=== PATIENT | female | born 1960 | race Caucasian/White ===

== ENCOUNTER 2016-11-18 13:30 | Inpatient (IN) | payer OTHER ==
[2016-11-18 12:31] VITALS: BMI 36.6
[2016-11-24] MEDS ORDERED: Sodium Chloride 0.9% 100 ML ONE ×2 (07:29→11:52)
[2016-11-24] MEDS ORDERED: ADMIXTURE FEE IVPB SCH (07:45)
[2016-11-24] MEDS ORDERED: SODIUM CHLORIDE IVPB SCH (07:45)
[2016-11-24] MEDS ORDERED: VANCOMYCIN HCL IVPB SCH (07:45)
[2016-11-24] MEDS ORDERED: Ropivacaine 0.2% HCl/PF 20 ML ONE (08:08)
[2016-11-24] MEDS ORDERED: Fentanyl 100 MCG/2 ML VIAL ONE ×2 (08:08→09:27)
[2016-11-24] MEDS ORDERED: Midazolam HCl 2 mg/2 ml Vial ONE (08:08)
[2016-11-24] MEDS ORDERED: Promethazine HCl 25 MG/ML VIAL IM PRN ×2 (08:26→11:29)
[2016-11-24] MEDS ORDERED: traMADol HCl 50 MG TAB PO PRN ×3 (08:26→11:29)
[2016-11-24] MEDS ORDERED: Ondansetron HCl/PF 4 MG/2 ML Vial IVP PRN ×2 (08:26→11:29)
[2016-11-24] MEDS ORDERED: Zolpidem Tartrate 5 MG TAB PO PRN ×2 (08:26→11:29)
[2016-11-24] MEDS ORDERED: Ropivacaine HCl/PF 250 ML in Premix Bag 1 BAG NERVE BLCK SCH (08:26)
[2016-11-24] MEDS ORDERED: HYDROcodone/Acetaminophen 10/325 mg Tablet PO PRN (08:26)
[2016-11-24] MEDS ORDERED: Fentanyl 100 MCG/2 ML VIAL IV PRN (08:26)
[2016-11-24] MEDS ORDERED: Bupivacaine PF 0.5% 30 ML VIAL ONE (09:18)
[2016-11-24] MEDS ORDERED: Bupivacaine HCl 0.5%/Epinephrine 1:200,000/PF 30 ml Vial ONE (09:18)
[2016-11-24] MEDS ORDERED: ePHEDrine/0.9% NaCl/PF SYRINGE 50 mg/10 ml ONE (09:50)
[2016-11-24] MEDS ORDERED: Propofol 200 MG/20 ML VIAL ONE (09:50)
[2016-11-24] MEDS ORDERED: Lidocaine 1% PF 5 ML VIAL ONE (09:50)
[2016-11-24] MEDS ORDERED: Ketorolac Tromethamine 30 MG/ML VIAL ONE (09:50)
[2016-11-24] MEDS ORDERED: PHENYLEPHRINE-NS 100 MCG/ML 10 ML SYRINGE ONE (09:50)
[2016-11-24] MEDS ORDERED: Ondansetron HCl/PF 4 MG/2 ML Vial ONE (09:50)
[2016-11-24] MEDS ORDERED: Dexamethasone 20 MG/5 ML VIAL ONE (09:50)
[2016-11-24] MEDS ORDERED: Glycopyrrolate 0.2 MG/ML 5 ML SYRINGE ONE (09:50)
[2016-11-24] MEDS ORDERED: Acetaminophen 325 MG TAB PO PRN (11:29)
[2016-11-24] MEDS ORDERED: diphenhydrAMINE HCl 25 MG CAP PO PRN (11:29)
[2016-11-24] MEDS ORDERED: Tranexamic Acid 1,000 MG in Sodium Chloride 0.9% 100 ML IVPB SCH (11:30)
--- NOTE | 2016-11-24 11:45 | OP ---
DATE OF PROCEDURE: 11/24/2016 PREOPERATIVE DIAGNOSIS: Left knee osteoarthrosis. POSTOPERATIVE DIAGNOSIS: Left knee osteoarthrosis. PROCEDURE PERFORMED: Left total knee replacement using [employer] pinless navigation. SURGEON: Bear Irvin M.D. GLASS CLEANER: Daryn Peoples PA-C. BLOOD LOSS: Minimal. COMPLICATIONS: None. ANESTHETIC: The patient did have a general anesthetic as well as a preoperative block. IMPLANTS: To the left knee, Triathlon total knee system. The femoral prosthesis was a size 4 cruci ate retaining. We used a size 3 universal tibial baseplate. We used a 3 x 11 mm CS X3 tibial beari ng and an asymmetric 29 x 9 X3 patella. DISPOSITION: She did go to recovery room in stable condition. INDICATIONS: A 56-year-old female who has had years of pain. She has failed all nonoperative treat ment and at this time opted to have surgery. PROCEDURE IN DETAIL: After all appropriate consent forms were explained and signed, the patient was taken back to the Operating Room and at this time was given general anesthetic. Once the level of an esthesia was appropriate, a well-padded tourniquet was placed on the left leg and the leg was then p repped and draped in standard surgical fashion. The limb was exsanguinated and tourniquet taken up t o 300 mmHg. Midline incision was made with a 10 blade down through the skin and subcutaneous tissue. Bovie electrocautery was used to coagulate any brisk venous bleeding. A new blade was used to make a medial parapatellar arthrotomy. Small subperiosteal release was performed medially and excess fat pad was removed. The knee was flexed up to gain access to the femur. The femur was navigated and dis marguerite femoral resection was made. Epicondylar access was used to align our sizing jig and this was pin amada in place. We sized our femur to be a size 4 cruciate retraining. :1 cutting block was applied a nd pinned. Anterior and posterior chamfer cuts were then made. We navigated out our proximal tibia a nd made our proximal tibial resection. Spreaders were used to remove any posterior osteophytes off t he back of the femur as well as remaining meniscal tissue. A long alignment krystal was then used to ach ieve correct rotation of our tibial baseplate and a size 3 universal tibial baseplate was chosen. Th is was pinned in place. We trialed the polyethylene and a 3 x 11 mm CS X3 tibial bearing polyethylen e gave us full extension and good stability throughout range of motion. Two towel clips and a saw we re used to cut our patella. Three lug nuts were drilled and an asymmetric 29 x 9 X3 patella was tria led which sat nicely in the trochlear groove. We then drilled our femur and punched our tibia. All c omponents were removed. The knee was thoroughly irrigated and dried. Cement was mixed into the cemen t gun on the back table. Components were then placed. The knee was held out in full extension until the cement had dried. All excess bone cement was removed. Multiple #2 Vicryl stitches as well as a Quill was used to close our extensor mechanism. 0 Quill followed by a running Monoderm was then used to close the skin. Surgicel glue was then used on the skin. Once this had dried, soft tissue dressi ng was applied to the limb, tourniquet was let down, and the toes pinked up nicely. The patient was then awakened and taken to the Recovery Room in stable condition. All counts were correct at the en d of the case. The patient did receive preoperative IV antibiotics. The patient was injected with E xparel for postoperative pain relief.
[2016-11-24] MEDS ORDERED: Promethazine HCl 25 MG/ML VIAL ONE (12:28)
[2016-11-24] MEDS: Ketorolac Tromethamine 30 MG/ML VIAL IVP SCH ×2 (14:54→17:04)
--- NOTE | 2016-11-24 16:09 | PDOC.PN ---
- Subjective Encounter Start Date: 11/24/16 Encounter Start Time: 16:07 Pt seen for management of medical comorbidities, including dyslipidemia. Sleepy but arousable, denies chest pain, shortness of breath, fevers or chills. No nausea or vomiting. - Objective MAR Reviewed: Yes Vital Signs & Weight: Weight Weight 200 lb Phys Exam - Physical Examination Obese HEENT: moist MMs, sclera anicteric Neck: supple Respiratory: no wheezing, no rales, no rhonchi, clear to auscultation bilateral Cardiovascular: RRR Gastrointestinal: soft Musculoskeletal: pulses present s/p L knee surgery Neurological: moves all 4 limbs Psychiatric: normal affect Dx/Plan (1) Dyslipidemia Code(s): E78.5 - HYPERLIPIDEMIA, UNSPECIFIED Status: Chronic (2) Osteoarthritis Code(s): M19.90 - UNSPECIFIED OSTEOARTHRITIS, UNSPECIFIED SITE Status: Chronic (3) Obesity Code(s): E66.9 - OBESITY, UNSPECIFIED Status: Chronic Qualifiers: Obesity classification: adult class 2 (BMI 35 ? 39.9) Body mass index: BMI 36.0-36.9 - Plan * . continue Zetia. Monitor vital signs. PRN IV hydralazine in case she has blood pressure spikes. DVT prophylaxis and pain management per orthopedic service. Review of Systems - Review of Systems Constitutional: negative: Fever, Chills, Sweats, Weakness, Malaise Respiratory: negative: Cough, Dry, Shortness of Breath, Hemoptysis, SOB with Excertion, Pleuritic Pain, Sputum, Wheezing Cardiovascular: negative: Chest Pain, Palpitations, Orthopnea, Paroxysmal Noc. Dyspnea, Edema, Light Headedness, Other Gastrointestinal: negative: Nausea, Vomiting, Abdominal Pain, Diarrhea, Constipation, Melena, Hematochezia - Medications/Allergies Allergies/Adverse Reactions: Allergies Allergy/AdvReac Type Severity Reaction Status Date / Time No Known Drug Allergies Allergy Verified 11/21/16 09:18 Medications: Current Medications Acetaminophen (Tylenol) 650 mg PO Q4H PRN PRN Reason: UJNE/ T > 101F; Mild Pain (1-3) Hydrocodone Bitart/Acetaminophen ([place] 10/325) 1 tab PO Q4H PRN PRN Reason: Pain (1-3) Hydrocodone Bitart/Acetaminophen ([place] 10/325) 2 tab PO Q4H PRN PRN Reason: PAIN (4-6) Aspirin (Aspirin) 325 mg PO BID [facility] Cefazolin Sodium (Ancef) 2 gm SLOW IVP Q8H [facility] Stop: 11/25/16 00:01 Diphenhydramine HCl (Benadryl) 25 mg PO Q6H PRN PRN Reason: Itching Ezetimibe (Zetia) 10 mg PO DAILY [facility] Fentanyl (Sublimaze) 50 mcg IV Q1H PRN PRN Reason: BREAKTHROUGH PAIN Ferrous Gluconate (Fergon) 324 mg PO BID [facility] Ropivacaine 250 ml/ Device 250 mls @ 0 mls/hr NERVE BLCK INF [facility] PRN Reason: As Directed Sodium Chloride (Normal Saline 0.9%) 1,000 mls @ 100 mls/hr IV .Q10H [facility] Vancomycin HCl 1.5 gm/ Sodium (Chloride) 300 mls @ 200 mls/hr IVPB 1999 [facility] Stop: 11/24/16 23:59 Iron/Minerals/Multivitamins (Theragran M) 1 tab PO DAILY [facility] Ketorolac Tromethamine (Toradol) 30 mg IVP Q6HR [facility] Stop: 11/26/16 06:01 Last Admin: 11/24/16 14:54 Dose: Not Given Ondansetron HCl (Zofran) 4 mg IVP Q6H PRN PRN Reason: Nausea/Vomiting Promethazine HCl (Phenergan) 12.5 mg IM Q4H PRN PRN Reason: Nausea/Vomiting Senna/Docusate Sodium (Senokot S) 2 tab PO BID [facility] Sodium Chloride (Flush - Normal Saline) 10 ml IVF PRN PRN PRN Reason: Saline Flush Tramadol HCl (Ultram) 100 mg PO Q6H PRN PRN Reason: Mild Pain (1-3) Zolpidem Tartrate (Ambien) 5 mg PO HSPRN PRN PRN Reason: Insomnia
[2016-11-24] MEDS: Sodium Chloride 0.9% 1,000 ML IV SCH ×2 (17:03→21:59)
[2016-11-24] MEDS ORDERED: Vancomycin HCl 1.5 GM in Sodium Chloride 0.9% 250 ML 300 ML IVPB SCH (20:00)
[2016-11-24] MEDS: Senokot S 8.6-50 MG TAB PO SCH (20:41)
[2016-11-24] MEDS: Aspirin 325 MG TAB PO SCH (20:41)
[2016-11-24] MEDS: Ferrous Gluconate 324 MG TAB PO SCH (20:41)
[2016-11-25] MEDS: Ketorolac Tromethamine 30 MG/ML VIAL IVP SCH ×5 (00:12→23:39)
[2016-11-25] MEDS: HYDROcodone/Acetaminophen 10/325 mg Tablet PO PRN ×4 (06:09→20:42)
[2016-11-25] MEDS: Sodium Chloride 0.9% 1,000 ML IV SCH ×2 (06:14→07:59)
[2016-11-25 06:17] LABS: Hematocrit 32.8 % (36.0-47.0); Mean Platelet Volume 7.2 fL (7.4-10.4); Red Blood Cell (RBC) Count 3.87 mill/uL (4.20-5.40); White Blood Cell (WBC) Count 10.3 thou/uL (4.8-10.8)
[2016-11-25] MEDS: Ferrous Gluconate 324 MG TAB PO SCH ×2 (07:56→20:41)
[2016-11-25] MEDS: Ezetimibe 10 MG TAB PO SCH (07:56)
[2016-11-25] MEDS: Senokot S 8.6-50 MG TAB PO SCH ×2 (07:56→20:41)
[2016-11-25] MEDS: Multivitamin W/ Minerals 1 TAB PO SCH (07:56)
[2016-11-25] MEDS: Aspirin 325 MG TAB PO SCH ×2 (07:56→20:41)
--- NOTE | 2016-11-25 17:02 | PDOC.PN ---
- Subjective Encounter Start Date: 11/25/16 Encounter Start Time: 09:40 Pt seen for followup re: dyslipidemia. Reports she feels well. Denies chest pain, nausea, vomiting or diarrhea. - Objective MAR Reviewed: Yes Vital Signs & Weight: Vital Signs (12 hours) Temp Pulse Resp BP Pulse Ox 11/25/16 16:00 97.8 F 66 18 132/66 94 L 11/25/16 12:00 97.9 F 71 18 134/69 93 L 11/25/16 08:25 97.9 F 77 20 11/25/16 08:00 97.9 F 77 20 99/62 94 L Weight Admit Weight 200 lb Weight 200 lb I&O: 11/24/16 11/25/16 11/26/16 06:59 06:59 06:59 Intake Total 3482 1200 Output Total 1100 900 Balance 2382 300 Result Diagrams: 11/25/16 05:32 Phys Exam - Physical Examination Obese HEENT: moist MMs Neck: supple Respiratory: clear to auscultation bilateral Cardiovascular: RRR Gastrointestinal: soft s/p L knee surgery Neurological: moves all 4 limbs Psychiatric: normal affect Dx/Plan (1) Dyslipidemia Code(s): E78.5 - HYPERLIPIDEMIA, UNSPECIFIED Status: Chronic (2) Osteoarthritis Code(s): M19.90 - UNSPECIFIED OSTEOARTHRITIS, UNSPECIFIED SITE Status: Chronic (3) Obesity Code(s): E66.9 - OBESITY, UNSPECIFIED Status: Chronic Qualifiers: Obesity classification: adult class 2 (BMI 35 ? 39.9) Body mass index: BMI 36.0-36.9 - Plan PT/OT, out of bed/ambulate * . Continue ezetimibe. Monitor vital signs per unit protocol. DVT prophylaxis/pain mgmt per primary service. Review of Systems - Review of Systems Constitutional: negative: Fever, Chills, Sweats, Weakness, Malaise Respiratory: negative: Cough, Dry, Shortness of Breath, Hemoptysis, SOB with Excertion, Pleuritic Pain, Sputum, Wheezing Cardiovascular: negative: Chest Pain, Palpitations, Orthopnea, Paroxysmal Noc. Dyspnea, Edema, Light Headedness - Medications/Allergies Allergies/Adverse Reactions: Allergies Allergy/AdvReac Type Severity Reaction Status Date / Time No Known Drug Allergies Allergy Verified 11/24/16 16:51 Medications: Current Medications Acetaminophen (Tylenol) 650 mg PO Q4H PRN PRN Reason: JUNE/ T > 101F; Mild Pain (1-3) Hydrocodone Bitart/Acetaminophen ([place] 10/325) 1 tab PO Q4H PRN PRN Reason: Pain (1-3) Hydrocodone Bitart/Acetaminophen ([place] 10/325) 2 tab PO Q4H PRN PRN Reason: PAIN (4-6) Last Admin: 11/25/16 16:16 Dose: 2 tab Aspirin (Aspirin) 325 mg PO BID [facility] Last Admin: 11/25/16 07:56 Dose: 325 mg Diphenhydramine HCl (Benadryl) 25 mg PO Q6H PRN PRN Reason: Itching Ezetimibe (Zetia) 10 mg PO DAILY [facility] Last Admin: 11/25/16 07:56 Dose: 10 mg Fentanyl (Sublimaze) 50 mcg IV Q1H PRN PRN Reason: BREAKTHROUGH PAIN Ferrous Gluconate (Fergon) 324 mg PO BID [facility] Last Admin: 11/25/16 07:56 Dose: 324 mg Hydralazine HCl (Apresoline) 10 mg SLOW IVP Q6H PRN PRN Reason: SBP Greater Than 170 Ropivacaine 250 ml/ Device 250 mls @ 0 mls/hr NERVE BLCK INF [facility] PRN Reason: As Directed Last Admin: 11/25/16 11:37 Dose: 250 mls Sodium Chloride (Normal Saline 0.9%) 1,000 mls @ 100 mls/hr IV .Q10H [facility] Last Admin: 11/25/16 07:59 Dose: Not Given Iron/Minerals/Multivitamins (Theragran M) 1 tab PO DAILY [facility] Last Admin: 11/25/16 07:56 Dose: 1 tab Ketorolac Tromethamine (Toradol) 30 mg IVP Q6HR [facility] Stop: 11/26/16 06:01 Last Admin: 11/25/16 11:46 Dose: 30 mg Ondansetron HCl (Zofran) 4 mg IVP Q6H PRN PRN Reason: Nausea/Vomiting Promethazine HCl (Phenergan) 12.5 mg IM Q4H PRN PRN Reason: Nausea/Vomiting Senna/Docusate Sodium (Senokot S) 2 tab PO BID [facility] Last Admin: 11/25/16 07:56 Dose: 2 tab Sodium Chloride (Flush - Normal Saline) 10 ml IVF PRN PRN PRN Reason: Saline Flush Tramadol HCl (Ultram) 100 mg PO Q6H PRN PRN Reason: Mild Pain (1-3) Zolpidem Tartrate (Ambien) 5 mg PO HSPRN PRN PRN Reason: Insomnia
[2016-11-26] MEDS: Sodium Chloride 0.9% 1,000 ML IV SCH ×2 (03:46→10:22)
[2016-11-26] MEDS: HYDROcodone/Acetaminophen 10/325 mg Tablet PO PRN ×3 (04:47→13:14)
[2016-11-26] MEDS: Ketorolac Tromethamine 30 MG/ML VIAL IVP SCH (05:27)
[2016-11-26 08:12] LABS: Hematocrit 33.4 % (36.0-47.0); Red Blood Cell (RBC) Count 3.89 mill/uL (4.20-5.40)
[2016-11-26] MEDS: Aspirin 325 MG TAB PO SCH (08:39)
[2016-11-26] MEDS: Ezetimibe 10 MG TAB PO SCH (08:40)
[2016-11-26] MEDS: Multivitamin W/ Minerals 1 TAB PO SCH (08:40)
[2016-11-26] MEDS: Ferrous Gluconate 324 MG TAB PO SCH (08:40)
[2016-11-26] MEDS: Senokot S 8.6-50 MG TAB PO SCH (08:40)
[2016-11-26 11:54] VITALS: BP 136/73; TEMP 97.2
--- NOTE | 2016-11-26 14:11 | PDOC.EVN ---
Event Note - Event Note Event Note: Attempted to follow up . Pt not in room. Plan to discharge noted, will sign off.
== END 2016-11-26 16:35 | disposition home health service (06) | DRG 470 ==
LOC: SURG B 11-24 06:43 → SJJU 11-24 11:48
PROVIDERS: ADMIT Orthopaedic Surgery; ATTEND Orthopaedic Surgery
PROC: 0SRD0J9 Replacement of Left Knee Joint with Synthetic Substitute, Cemented, Open Approach (ICD-10-PCS; principal; 2016-11-24)
PROC: 3E0T3CZ (ICD-10-PCS; 2016-11-24)
DX: M17.12 Unilateral primary osteoarthritis, left knee (principal); E11.42 Type 2 diabetes mellitus with diabetic polyneuropathy; Z79.84 Long term (current) use of oral hypoglycemic drugs; F41.9 Anxiety disorder, unspecified; F32.9 Major depressive disorder, single episode, unspecified; M79.7 Fibromyalgia; E66.01 Morbid (severe) obesity due to excess calories; Z68.36 Body mass index [BMI] 36.0-36.9, adult; E78.5 Hyperlipidemia, unspecified; G47.33 Obstructive sleep apnea (adult) (pediatric); Z98.84 Bariatric surgery status; Z87.891 Personal history of nicotine dependence
CPT/HCPCS: 36415; 85027; C1713; C1776; G8978-GP-CK; G8979-GP-CI; J0670; J1100; J1885; J2001; J2250; J2405; J2550; J2704; J2795; J3010; J3370; J7050; S0020

== ENCOUNTER 2017-02-03 08:45 | Inpatient (IN) | payer OTHER ==
[2017-02-03 09:02] VITALS: BMI 35.3
[2017-02-09] MEDS ORDERED: Midazolam HCl 2 mg/2 ml Vial ONE ×2 (07:28→09:38)
[2017-02-09] MEDS ORDERED: Ropivacaine 0.2% HCl/PF 20 ML ONE (07:28)
[2017-02-09] MEDS ORDERED: Fentanyl 100 MCG/2 ML VIAL ONE ×3 (07:28→12:44)
[2017-02-09] MEDS ORDERED: Vancomycin HCl 1.5 GM in Sodium Chloride 0.9% 250 ML 300 ML IVPB SCH ×2 (07:30→20:00)
[2017-02-09] MEDS ORDERED: Tranexamic Acid 1,000 MG/100 ML BAG ONE ×2 (07:32→12:37)
[2017-02-09] MEDS ORDERED: CEFAZOLIN/Water 2 GM/20 ML SYRINGE ONE (07:32)
[2017-02-09] MEDS ORDERED: Promethazine HCl 25 MG/ML VIAL IM PRN ×3 (08:21→11:18)
[2017-02-09] MEDS ORDERED: traMADol HCl 50 MG TAB PO PRN ×2 (08:21→10:54)
[2017-02-09] MEDS ORDERED: Zolpidem Tartrate 5 MG TAB PO PRN ×2 (08:21→10:54)
[2017-02-09] MEDS ORDERED: HYDROcodone/Acetaminophen 5/325 mg Tablet PO PRN (08:21)
[2017-02-09] MEDS ORDERED: Ropivacaine HCl/PF 250 ML in Premix Bag 1 BAG NERVE BLCK SCH (08:21)
[2017-02-09] MEDS ORDERED: Fentanyl 100 MCG/2 ML VIAL IV PRN (08:24)
[2017-02-09] MEDS ORDERED: Bupivacaine PF 0.5% 30 ML VIAL ONE (09:28)
[2017-02-09] MEDS ORDERED: Fentanyl 250 MCG/5 ML VIAL ONE (10:51)
[2017-02-09] MEDS ORDERED: Acetaminophen 325 MG TAB PO PRN (10:54)
[2017-02-09] MEDS ORDERED: diphenhydrAMINE 25 MG CAP PO PRN (10:54)
[2017-02-09] MEDS ORDERED: HYDROcodone/Acetaminophen 10/325 mg Tablet PO PRN ×2 (10:54)
[2017-02-09] MEDS ORDERED: Ondansetron HCl/PF 4 MG/2 ML Vial IVP PRN ×2 (10:54→11:18)
[2017-02-09] MEDS ORDERED: Tranexamic Acid 1,000 MG in Sodium Chloride 0.9% 100 ML IVPB SCH (11:00)
[2017-02-09] MEDS ORDERED: Promethazine HCl 25 MG/ML VIAL SLOW IVP PRN (11:18)
--- NOTE | 2017-02-09 12:34 | OP ---
DESCRIPTION OF PROCEDURE: 02/09/2017 PREOPERATIVE DIAGNOSIS: Right knee osteoarthrosis. POSTOPERATIVE DIAGNOSIS: Right knee osteoarthrosis. PROCEDURE PERFORMED: Right total knee arthroplasty using [employer] pinless navigation. SURGEON: Bear Irvin M.D. QM CONSULTANT: Daryn Peoples PA-C. BLOOD LOSS: Minimal. COMPLICATIONS: None. IMPLANTS: A Triathlon total knee system. The femur was a size 4 cruciate retaining. We used a size 3 universal tibial baseplate. We used a 3 x 9 mm CSX3 tibial bearing and an symmetric 27 x 8 mm X3 patella. CONDITION: She did go to recovery room in stable condition. INDICATIONS: A 56-year-old female who had her left knee replaced earlier this year and at this time wished to have her right knee replaced. PROCEDURE IN DETAIL: After all appropriate consent forms were explained and signed, the patient was t aken back to the Operating Room and at this time was given general anesthetic. Once the level of anes thesia was appropriate, a well-padded tourniquet was placed on the right leg and the leg was then pre pped and draped in standard surgical fashion. The limb was exsanguinated and tourniquet taken up to 3 00 mmHg. Midline incision was made with a 10 blade down through the skin and subcutaneous tissue. Bov ie electrocautery was used to coagulate any brisk venous bleeding. A new blade was used to make a med ial parapatellar arthrotomy. Small subperiosteal release was performed medially and excess fat pad wa s removed. The knee was flexed up to gain access to the femur. The femur was navigated and distal fem oral resection was made. Epicondylar access was used to align our sizing jig and this was pinned in p lace. We sized our femur to be a cruciate retaining, 4:1 cutting block was applied and pinned. Anteri or and posterior chamfer cuts were then made. We navigated out our proximal tibia and made our proxim al tibial resection. Spreaders were used to remove any posterior osteophytes off the back of the femu r as well as remaining meniscal tissue. A long alignment krystal was then used to achieve correct rotatio n of our tibial baseplate and a size 3 was chosen. This was pinned in place. We trialed the polyethyl sujatha and a 3 x 9 mm CSX3 polyethylene gave us full extension and good stability throughout range of mo tion. Two towel clips and a saw were used to cut our patella. Three lug nuts were drilled and right p atella was trialed which sat nicely in the trochlear groove. We then drilled our femur and punched ou r tibia. All components were removed. The knee was thoroughly irrigated and dried. Cement was mixed i nto the cement gun on the back table. Components were then placed. The knee was held out in full exte nsion until the cement had dried. All excess bone cement was removed. Multiple #2 Vicryl stitches as well as a Quill was used to close our extensor mechanism. 0 Quill followed by a running Monoderm was then used to close the skin. Surgicel glue was then used on the skin. Once this had dried, soft tiss ue dressing was applied to the limb, tourniquet was let down, and the toes pinked up nicely. The pat ient was then awakened and taken to the Recovery Room in stable condition. All counts were correct at the end of the case. The patient did receive preoperative IV antibiotics. The patient was injected with Marcaine for postoperative pain relief.
[2017-02-09 12:35] LABS: Bilirubin Negative (Negative); Blood, Urine Negative (Negative); Glucose, Urine (Dipstick) Negative (Negative); Ketone, Urine Negative (Negative); Nitrite Negative (Negative); Protein, Urine (Dipstick) Negative (Neg-Trace)
[2017-02-09 12:41] LABS: Bacteria/HPF None Seen HPF (None Seen); Hyaline Casts/LPF 0-3 HYALINE CAST LPF (0-3 Hyaline); RBC/HPF None Seen HPF (0-3); Squamous Epithelial None Seen HPF (0-3); WBC/HPF None Seen HPF (0-3)
[2017-02-09] MEDS: Sodium Chloride 0.9% 1,000 ML IV SCH ×2 (14:56→20:53)
--- NOTE | 2017-02-09 15:18 | PDOC.PN ---
- Subjective Encounter Start Date: 02/09/17 Encounter Start Time: 15:00 Subjective: no chest pain or sob -: c/o mild pain in her right knee - Objective MAR Reviewed: Yes Vital Signs & Weight: Weight Weight 193 lb Phys Exam - Physical Examination HEENT: PERRLA, sclera anicteric Neck: no JVD, supple Respiratory: no wheezing, no rales Cardiovascular: RRR, no significant murmur Gastrointestinal: soft, non-tender, positive bowel sounds Musculoskeletal: pulses present right knee in dressing Neurological: non-focal, moves all 4 limbs Psychiatric: A&O x 3 Dx/Plan (1) Status post total knee replacement, right Code(s): Z96.651 - PRESENCE OF RIGHT ARTIFICIAL KNEE JOINT Status: Acute Comment: done 02/09/2017 (2) CAD (coronary artery disease) Code(s): I25.10 - ATHSCL HEART DISEASE OF [place] CORONARY ARTERY W/O ANG PCTRS Status: Chronic Qualifiers: Coronary Disease-Associated Artery/Lesion type: [place] artery [place] vs. transplanted heart: [place] heart Associated angina: without angina Qualified Code(s): I25.10 - Atherosclerotic heart disease of [place] coronary artery without angina pectoris Comment: prior stent x2 in 2014, 2015 (3) HTN (hypertension) Code(s): I10 - ESSENTIAL (PRIMARY) HYPERTENSION Status: Chronic Qualifiers: Hypertension type: essential hypertension Qualified Code(s): I10 - Essential (primary) hypertension (4) Dyslipidemia Code(s): E78.5 - HYPERLIPIDEMIA, UNSPECIFIED Status: Chronic (5) Obesity (BMI 30-39.9) Code(s): E66.9 - OBESITY, UNSPECIFIED Status: Chronic - Plan post op recovering well -: is on asp bid for dvt prophylaxis post knee surgery -: ropivacaine block, fentanyl, norco prn -: continue i.spirometry -: not sure she has sleep apnea, does not use cpap at home * . Review of Systems - Medications/Allergies Allergies/Adverse Reactions: Allergies Allergy/AdvReac Type Severity Reaction Status Date / Time No Known Drug Allergies Allergy Verified 02/03/17 09:02 Medications: Current Medications Acetaminophen (Tylenol) 650 mg PO Q4H PRN PRN Reason: JUNE/ T > 101F; Mild Pain (1-3) Hydrocodone Bitart/Acetaminophen ([place] 5/325) 1 tab PO Q4H PRN PRN Reason: Mild Pain (1-3) Hydrocodone Bitart/Acetaminophen ([place] 5/325) 2 tab PO Q4H PRN PRN Reason: For Moderate Pain 4-6 Hydrocodone Bitart/Acetaminophen ([place] 10/325) 1 tab PO Q4H PRN PRN Reason: Moderate Pain (4-6) Hydrocodone Bitart/Acetaminophen ([place] 10/325) 2 tab PO Q4H PRN PRN Reason: Severe Pain (7-10) Aspirin (Aspirin) 325 mg PO BID [facility] Aspirin (Aspirin) 325 mg PO BID [facility] Atorvastatin Calcium (Lipitor) 80 mg PO HS [facility] Cefazolin Sodium (Ancef) 2 gm SLOW IVP 0800,1600,2359 [facility] Stop: 02/10/17 00:00 Diphenhydramine HCl (Benadryl) 25 mg PO Q6H PRN PRN Reason: Itching Ezetimibe (Zetia) 10 mg PO DAILY [facility] Fentanyl (Sublimaze) 50 mcg IV Q1H PRN PRN Reason: BREAKTHRU PAIN Last Admin: 02/09/17 14:50 Dose: 50 mcg Ferrous Gluconate (Fergon) 324 mg PO BID [facility] Ropivacaine 250 ml/ Device 250 mls @ 10 mls/hr NERVE BLCK INF [facility] Sodium Chloride (Normal Saline 0.9%) 1,000 mls @ 100 mls/hr IV .Q10H [facility] Last Admin: 02/09/17 14:56 Dose: Not Given Vancomycin HCl 1.5 gm/ Sodium (Chloride) 300 mls @ 200 mls/hr IVPB 2000 [facility] Stop: 02/09/17 21:29 Iron/Minerals/Multivitamins (Theragran M) 1 tab PO DAILY [facility] Ketorolac Tromethamine (Toradol) 30 mg IVP Q6H PRN PRN Reason: Moderate Pain (4-6) Stop: 02/12/17 08:22 Ondansetron HCl (Zofran) 4 mg IVP Q6H PRN PRN Reason: Nausea/Vomiting Ondansetron HCl (Zofran) 4 mg IVP Q6H PRN PRN Reason: Nausea/Vomiting Promethazine HCl (Phenergan) 12.5 mg IM Q4H PRN PRN Reason: Nausea Promethazine HCl (Phenergan) 12.5 mg IM Q4H PRN PRN Reason: Nausea/Vomiting Senna/Docusate Sodium (Senokot S) 2 tab PO BID [facility] Sodium Chloride (Flush - Normal Saline) 10 ml IVF PRN PRN PRN Reason: Saline Flush Tramadol HCl (Ultram) 50 mg PO Q6H PRN PRN Reason: Mild Pain (1-3) Tramadol HCl (Ultram) 100 mg PO Q6H PRN PRN Reason: Moderate Pain 4-6 Tramadol HCl (Ultram) 100 mg PO Q6H PRN PRN Reason: Mild Pain (1-3) Zolpidem Tartrate (Ambien) 5 mg PO HSPRN PRN PRN Reason: Insomnia Zolpidem Tartrate (Ambien) 5 mg PO HSPRN PRN PRN Reason: Insomnia
[2017-02-09] MEDS ORDERED: Ondansetron HCl/PF 4 MG/2 ML Vial ONE (15:43)
[2017-02-09] MEDS ORDERED: Propofol 200 MG/20 ML VIAL ONE (15:43)
[2017-02-09] MEDS ORDERED: Lidocaine 1% PF 5 ML VIAL ONE (15:43)
[2017-02-09] MEDS: CEFAZOLIN/Water 2 GM/20 ML SYRINGE SLOW IVP SCH ×2 (16:19→23:30)
[2017-02-09] MEDS ORDERED: Ropivacaine 0.2% HCl/PF (40 MG/20 ML VIAL) ONE (16:22)
[2017-02-09] MEDS: Ondansetron HCl/PF 4 MG/2 ML Vial IVP PRN (18:38)
[2017-02-09] MEDS: Ketorolac Tromethamine 30 MG/ML VIAL IVP PRN (18:47)
[2017-02-09] MEDS ORDERED: FLU VACC QS2017-18 36 mo. & older 0.5 ML SYRINGE IM ONE (20:30)
[2017-02-09] MEDS: Atorvastatin Calcium 40 MG TAB PO SCH (20:53)
[2017-02-09] MEDS: Aspirin 325 MG TAB PO SCH (20:53)
[2017-02-09] MEDS ORDERED: Aspirin 325 MG TAB PO SCH (21:00)
[2017-02-10] MEDS: HYDROcodone/Acetaminophen 5/325 mg Tablet PO PRN ×2 (03:44→07:51)
[2017-02-10 06:15] LABS: Hematocrit 31.7 % (36.0-47.0); Red Blood Cell (RBC) Count 3.77 mill/uL (4.20-5.40)
[2017-02-10] MEDS: traMADol HCl 50 MG TAB PO PRN (06:35)
[2017-02-10] MEDS: Ondansetron HCl/PF 4 MG/2 ML Vial IVP PRN ×2 (06:36→16:27)
[2017-02-10] MEDS: Sodium Chloride 0.9% 1,000 ML IV SCH ×2 (06:38→17:42)
[2017-02-10] MEDS: Senokot S 8.6-50 MG TAB PO SCH ×2 (08:12→20:32)
[2017-02-10] MEDS: Ferrous Gluconate 324 MG TAB PO SCH ×2 (08:12→20:34)
[2017-02-10] MEDS: Multivitamin W/ Minerals 1 TAB PO SCH (08:12)
[2017-02-10] MEDS: Ezetimibe 10 MG TAB PO SCH (08:12)
[2017-02-10] MEDS: Aspirin 325 MG TAB PO SCH ×2 (08:12→20:32)
[2017-02-10] MEDS: Ketorolac Tromethamine 30 MG/ML VIAL IVP PRN ×2 (08:15→16:27)
[2017-02-10] MEDS ORDERED: HYDROcodone/Acetaminophen 10/325 mg Tablet PO PRN (11:19)
[2017-02-10] MEDS: HYDROcodone/Acetaminophen 10/325 mg Tablet PO PRN ×3 (12:04→22:10)
--- NOTE | 2017-02-10 13:31 | PDOC.PN ---
- Subjective Encounter Start Date: 02/10/17 Encounter Start Time: 13:00 Patient seen and examined. No new complaints. No overnight events - Objective MAR Reviewed: Yes Vital Signs & Weight: Vital Signs (12 hours) Temp Pulse Resp BP Pulse Ox 02/10/17 12:39 97.8 F 82 18 133/86 92 L 02/10/17 08:24 97.7 F 72 18 127/78 96 02/10/17 08:00 97.7 F 72 18 96 02/10/17 04:00 98.3 F 74 18 100/58 L 98 Weight Admit Weight 193 lb Weight 193 lb I&O: 02/09/17 02/10/17 02/11/17 06:59 06:59 06:59 Intake Total 2602 Output Total 600 Balance 2001 Result Diagrams: 02/10/17 04:43 Phys Exam - Physical Examination Constitutional: NAD Neurological: moves all 4 limbs Psychiatric: A&O x 3 Dx/Plan - Plan DVT proph w/SCDs IMPRESSION: 1. HTN 2. Dyslipidemia 3. DJD 4. Obesity BMI 35.3 PLAN: * Cont Statins * Cont PT/OT * ASA for DVT prophylaxis per protocol * Cont to monitor * Will follow Review of Systems - Review of Systems Cardiovascular: negative: Chest Pain, Palpitations, Orthopnea, Paroxysmal Noc. Dyspnea, Edema, Light Headedness - Medications/Allergies Allergies/Adverse Reactions: Allergies Allergy/AdvReac Type Severity Reaction Status Date / Time No Known Drug Allergies Allergy Verified 02/03/17 09:02 Medications: Current Medications Acetaminophen (Tylenol) 650 mg PO Q4H PRN PRN Reason: JUNE/ T > 101F; Mild Pain (1-2) Hydrocodone Bitart/Acetaminophen ([place] 10/325) 1 tab PO Q4H PRN PRN Reason: PAIN SCALE 3-7 Hydrocodone Bitart/Acetaminophen ([place] 10/325) 2 tab PO Q4H PRN PRN Reason: PAIN SCALE 6-10 Last Admin: 02/10/17 12:04 Dose: 2 tab Aspirin (Aspirin) 325 mg PO BID [facility] Last Admin: 02/10/17 08:12 Dose: 325 mg Atorvastatin Calcium (Lipitor) 80 mg PO HS [facility] Last Admin: 02/09/17 20:53 Dose: 80 mg Diphenhydramine HCl (Benadryl) 25 mg PO Q6H PRN PRN Reason: Itching Ezetimibe (Zetia) 10 mg PO DAILY [facility] Last Admin: 02/10/17 08:12 Dose: 10 mg Fentanyl (Sublimaze) 50 mcg IV Q1H PRN PRN Reason: BREAKTHRU PAIN Last Admin: 02/09/17 14:50 Dose: 50 mcg Ferrous Gluconate (Fergon) 324 mg PO BID [facility] Last Admin: 02/10/17 08:12 Dose: 324 mg Ropivacaine 250 ml/ Device 250 mls @ 10 mls/hr NERVE BLCK INF [facility] Sodium Chloride (Normal Saline 0.9%) 1,000 mls @ 100 mls/hr IV .Q10H [facility] Last Admin: 02/10/17 06:38 Dose: Not Given Iron/Minerals/Multivitamins (Theragran M) 1 tab PO DAILY [facility] Last Admin: 02/10/17 08:12 Dose: 1 tab Ketorolac Tromethamine (Toradol) 30 mg IVP Q6H PRN PRN Reason: Moderate Pain (4-6) Stop: 02/12/17 08:22 Last Admin: 02/10/17 08:15 Dose: 30 mg Ondansetron HCl (Zofran) 4 mg IVP Q6H PRN PRN Reason: Nausea/Vomiting Last Admin: 02/10/17 06:36 Dose: 4 mg Promethazine HCl (Phenergan) 12.5 mg IM Q4H PRN PRN Reason: Nausea Senna/Docusate Sodium (Senokot S) 2 tab PO BID [facility] Last Admin: 02/10/17 08:12 Dose: 2 tab Sodium Chloride (Flush - Normal Saline) 10 ml IVF PRN PRN PRN Reason: Saline Flush Tramadol HCl (Ultram) 50 mg PO Q6H PRN PRN Reason: Mild Pain (1-3) Tramadol HCl (Ultram) 100 mg PO Q6H PRN PRN Reason: Moderate Pain 4-6 Last Admin: 02/10/17 06:35 Dose: 100 mg Zolpidem Tartrate (Ambien) 5 mg PO HSPRN PRN PRN Reason: Insomnia
[2017-02-10] MEDS: Atorvastatin Calcium 40 MG TAB PO SCH (20:32)
[2017-02-11] MEDS: Sodium Chloride 0.9% 1,000 ML IV SCH ×2 (02:43→12:59)
[2017-02-11] MEDS: HYDROcodone/Acetaminophen 10/325 mg Tablet PO PRN ×3 (04:04→12:56)
[2017-02-11 06:07] LABS: Mean Platelet Volume 7.2 fL (7.4-10.4); Red Blood Cell (RBC) Count 3.79 mill/uL (4.20-5.40); White Blood Cell (WBC) Count 7.5 thou/uL (4.8-10.8)
[2017-02-11] MEDS: traMADol HCl 50 MG TAB PO PRN (07:01)
[2017-02-11] MEDS: Ondansetron HCl/PF 4 MG/2 ML Vial IVP PRN (08:44)
[2017-02-11] MEDS: Senokot S 8.6-50 MG TAB PO SCH (09:10)
[2017-02-11] MEDS: Aspirin 325 MG TAB PO SCH (09:10)
[2017-02-11] MEDS: Multivitamin W/ Minerals 1 TAB PO SCH (09:10)
[2017-02-11] MEDS: Ferrous Gluconate 324 MG TAB PO SCH (09:11)
[2017-02-11] MEDS: Ezetimibe 10 MG TAB PO SCH (09:11)
[2017-02-11 12:44] VITALS: BP 126/58; TEMP 98.2
== END 2017-02-11 15:36 | disposition home or self-care (01) | DRG 470 ==
LOC: SURG A 02-09 06:56 → SJJU 02-09 13:16
PROVIDERS: ADMIT Orthopaedic Surgery; ATTEND Orthopaedic Surgery
PROC: 0SRC0J9 Replacement of Right Knee Joint with Synthetic Substitute, Cemented, Open Approach (ICD-10-PCS; principal; 2017-02-09)
PROC: 3E0T3BZ Introduction of Anesthetic Agent into Peripheral Nerves and Plexi, Percutaneous Approach (ICD-10-PCS; 2017-02-09)
DX: M17.11 Unilateral primary osteoarthritis, right knee (principal); E87.5 Hyperkalemia; I10 Essential (primary) hypertension; G62.9 Polyneuropathy, unspecified; E11.9 Type 2 diabetes mellitus without complications; E66.9 Obesity, unspecified; I25.10 Atherosclerotic heart disease of native coronary artery without angina pectoris; Z98.84 Bariatric surgery status; Z96.652 Presence of left artificial knee joint; Z68.35 Body mass index [BMI] 35.0-35.9, adult
CPT/HCPCS: 36415; 36416; 81001; 85027; C1713; C1776; G8978-GP-CM; G8979-GP-CJ; J1885; J2001; J2250; J2405; J2704; J2795; J3010; J3370; J7050; S0020

== ENCOUNTER 2017-02-03 08:49 | Outpatient (CLI) | payer OTHER ==
[2017-02-03 13:09] LABS: Bilirubin Negative (Negative); Blood, Urine Negative (Negative); Glucose, Urine (Dipstick) Negative (Negative); Ketone, Urine Negative (Negative); Nitrite Negative (Negative); Protein, Urine (Dipstick) Trace mg/dL (Neg-Trace)
[2017-02-03 13:10] LABS: Bacteria/HPF 4+ HPF (None Seen); WBC/HPF 21-50 HPF (0-3)
[2017-02-03 13:16] LABS: #Basophils 0.1 thou/uL (0.0-0.2); #Eosinphils 0.1 thou/uL (0.0-0.7); #Lymphocytes 3.6 thou/uL (1.20-3.40); #Monocytes 0.6 thou/uL (0.11-0.59); #Neutrophils 4.8 thou/uL (1.40-6.50); %Basophils 0.6 % (0.0-1.0); %Eosinophils 1.6 % (0.0-10.0); %Lymphocytes 39.6 % (21.0-51.0); Hematocrit 39.7 % (36.0-47.0); Red Blood Cell (RBC) Count 4.75 mill/uL (4.20-5.40); White Blood Cell (WBC) Count 9.2 thou/uL (4.8-10.8)
[2017-02-03 13:20] LABS: Hyaline Casts/LPF 0-3 HYALINE CAST LPF (0-3 Hyaline); RBC/HPF 0-3 HPF (0-3)
[2017-02-03 13:28] LABS: Prothrombin Time 13.3 SEC (12.0-14.7)
[2017-02-03 13:30] LABS: Anion Gap 10 mmol/L (10-20); BUN (Urea Nitrogen) 19 mg/dL (9.8-20.1); Calc. Creatinine Clearance 0 mL/min (70-130); Calcium 9.9 mg/dL (7.8-10.44); Carbon Dioxide 29 mmol/L (22-29); Chloride 104 mmol/L (98-107); Estimated GFR-MDRD Greater than 90
== END 2017-02-03 08:50 | disposition home or self-care (01) ==
LOC: LABBT 08:49
PROVIDERS: ATTEND Orthopaedic Surgery
DX: Z01.818 Encounter for other preprocedural examination (principal); M17.11 Unilateral primary osteoarthritis, right knee
CPT/HCPCS: 80048; 81001; 85025; 85610; 86850; 86900; 86901; 87081; 93005; 93010

== ENCOUNTER 2017-07-15 08:47 | Outpatient (CLI) | payer OTHER ==
--- NOTE | 2017-07-15 14:46 | MRI ---
MRI LUMBAR SPINE WITHOUT CONTRAST: Technique: Multiplanar, multisequential images of the lumbar spine obtained. Indications: Low back pain. Left leg pain. Left foot numbness. FINDINGS: Slight scoliosis curvature to the left. Lumbar vertebrae maintain height and alignment in the sagitta l plane. Degenerative disc changes are seen at all levels. Loss of disc space is prominent at L2-3 an d L3-4. Degenerative endplate changes are pronounced at L2-3. Anterior osteophytes are seen at all le vels. L1-2: There is mild diffuse disc bulge flattening the thecal sac. Facet hypertrophy. Mild central can al stenosis. L2-3: Degenerative disc and endplate change as noted above. There is mild facet and ligamentous hyper trophy. Mild central canal stenosis. Mild foraminal narrowing due to hypertrophic change. L3-4: Mild disc bulge. Mild to moderate facet hypertrophy. Mild central canal stenosis. Right foramin al stenosis due to disc osteophyte complex projecting into the right foramina. L4-5: Broad based disc bulge flattens the thecal sac. Facet hypertrophy. Mild central canal stenosis. Bilateral foraminal stenosis secondary to disc bulge and hypertrophic change. L5-S1: Mild disc bulge. Mild facet arthrosis. No significant central canal stenosis. There is right f oraminal stenosis secondary to diffuse disc bulge extending into the foramina and associated facet hy pertrophy. This does appear to impinge on a mildly displaced extending left L5 nerve root. IMPRESSION: Degenerative disc changes as described above. Disc bulge and foraminal encroachment at several levels as noted above. POS: ALEXANDRA
== END 2017-07-15 08:48 | disposition home or self-care (01) ==
LOC: SCSMRI 08:47
PROVIDERS: ATTEND Orthopaedic Surgery
DX: M79.605 Pain in left leg (principal); R20.0 Anesthesia of skin; M51.37 Other intervertebral disc degeneration, lumbosacral region
CPT/HCPCS: 72148

== ENCOUNTER 2017-11-26 00:57 | Observation (INO) | payer OTHER ==
[2017-11-26 01:25] LABS: #Basophils 0.1 thou/uL (0.0-0.2); #Eosinphils 0.2 thou/uL (0.0-0.7); #Lymphocytes 3.9 thou/uL (1.20-3.40); #Monocytes 0.8 thou/uL (0.11-0.59); #Neutrophils 4.5 thou/uL (1.40-6.50); %Basophils 1.2 % (0.0-1.0); %Lymphocytes 40.7 % (21.0-51.0); %Monocytes 8.6 % (0.0-10.0); %Neutrophils 47.4 % (42.0-75.0); Hemoglobin 12.4 g/dL (12.0-16.0); Mean Corpuscular HGB CONC 31.8 g/dL (32.0-36.0); Mean Corpuscular Hemoglobin 26.1 pg (27.0-31.0); Mean Corpuscular Volume 82.2 fL (78.0-98.0); Mean Platelet Volume 6.8 fL (7.4-10.4); Platelet Count 384 thou/uL (130-400); RBC Distribution Width 13.4 % (11.5-14.5); Red Blood Cell (RBC) Count 4.73 mill/uL (4.20-5.40); White Blood Cell (WBC) Count 9.5 thou/uL (4.8-10.8)
[2017-11-26] MEDS ORDERED: Aspirin 325 MG TAB ONE (01:26)
[2017-11-26] MEDS ORDERED: Nitroglycerin 2% Ointment 1 INCH/1 GM Packet ONE (01:33)
[2017-11-26 01:41] LABS: ALT (SGPT) 17 U/L (8-55); AST (SGOT) 16 U/L (5-34); Alkaline Phosphatase 131 U/L (40-150); Anion Gap 10 mmol/L (10-20); BUN (Urea Nitrogen) 23 mg/dL (9.8-20.1); Bilirubin, Total 0.2 mg/dL (0.2-1.2); CK (CPK) 58 U/L (29-168); Calc. Creatinine Clearance 0 mL/min (70-130); Calcium 9.7 mg/dL (7.8-10.44); Carbon Dioxide 28 mmol/L (22-29); Chloride 105 mmol/L (98-107); Estimated GFR-MDRD 74; Globulin 3.4 g/dL (2.4-3.5); Glucose 124 mg/dL (70-105); Protein, Total 7.4 g/dL (6.0-8.3); Sodium 139 mmol/L (136-145)
[2017-11-26 01:44] LABS: CKMB 0.9 ng/mL (0-6.6); Troponin I Less than 0.010 ng/mL (< 0.028)
[2017-11-26 01:55] LABS: PTT 32.7 SEC (22.9-36.1)
[2017-11-26 01:56] LABS: D-Dimer Test 0.8 *mcg/mL (0.27-0.43); Prothrombin Time 12.7 SEC (12.0-14.7)
[2017-11-26 04:10] LABS: Troponin I Less than 0.010 ng/mL (< 0.028)
[2017-11-26 07:19] LABS: Troponin I 0.013 ng/mL (< 0.028)
[2017-11-26 07:31] VITALS: BMI 41.4
--- NOTE | 2017-11-26 08:38 | RAD ---
PORTABLE CHEST 1 VIEW: DATE: 11/26/17. TIME: 1:06 a.m. HISTORY: Elevated D-dimer and chest pain. FINDINGS: The heart is enlarged. No focal areas of consolidation, pneumothoraces, marielena pulmonary edema, or pl eural effusions are seen. IMPRESSION: Cardiomegaly. POS: [facility]
[2017-11-26] MEDS ORDERED: ALPRAZolam 0.25 MG TAB PO PRN (08:40)
[2017-11-26] MEDS ORDERED: Lorazepam 1 MG TAB PO PRN (08:42)
[2017-11-26] MEDS ORDERED: Nitroglycerin 0.4 MG TAB (25 Tab Bottle) SL PRN (08:42)
[2017-11-26] MEDS ORDERED: Loratadine 10 MG TAB PO PRN (08:42)
[2017-11-26] MEDS ORDERED: cloNIDine 0.1 MG TAB PO PRN (08:42)
[2017-11-26] MEDS ORDERED: Nitroglycerin 0.4 MG TAB (25 Tab Bottle) PO PRN (08:42)
[2017-11-26] MEDS ORDERED: Calcium Carbonate 500 MG ChewTAB PO PRN (08:42)
[2017-11-26] MEDS ORDERED: Benzonatate 100 MG CAP PO PRN (08:42)
[2017-11-26] MEDS ORDERED: Ondansetron HCl/PF 4 MG/2 ML Vial IVP PRN ×2 (08:42)
[2017-11-26] MEDS ORDERED: Mag-Al 1200 mg/1200 mg/30 ML UDCUP PO PRN (08:42)
[2017-11-26] MEDS ORDERED: hydrALAZINE 20 MG/ML VIAL SLOW IVP PRN (08:42)
[2017-11-26] MEDS ORDERED: traMADol HCl 50 MG TAB PO PRN (08:42)
[2017-11-26] MEDS ORDERED: Acetaminophen 325 MG TAB PO PRN (08:42)
[2017-11-26] MEDS ORDERED: Senokot 8.6 MG TAB PO PRN ×2 (08:42)
[2017-11-26] MEDS ORDERED: Bisacodyl 5 MG TAB PO PRN ×2 (08:42)
[2017-11-26] MEDS ORDERED: Diabetic Tussin 200 MG/10 ML UDCUP PO PRN (08:42)
[2017-11-26] MEDS ORDERED: Enoxaparin Sodium 40 MG/0.4 ML SYRINGE SC SCH (09:00)
[2017-11-26] MEDS ORDERED: Non-Formulary Item 1 EACH (Atorvastatin Calcium [Atorvastatin Calcium] 80 MG) PO SCH (09:00)
--- NOTE | 2017-11-26 09:05 | CT ---
PRELIMINARY REPORT/[facility]/EMERGENTY AFTER-HOURS PROCEDURE CT Angiography Chest With Intravenous Contrast CLINICAL HISTORY: 57 years old, female; Pain; Chest pain; Patient HX: 57 yo f who comes in with crushing/burning left s ided chest pain. The pain started last night and resolved. Then it restarted tonight, waking her from sleep so she came into the ed. The pain is 10/10 and radiates to both sides of her jaw. She has had 2 stents in the past. She is supposed to be on aspirin but does not take it because she forgets TECHNIQUE: Axial computed tomographic angiography images of the chest with intravenous contrast using pulmonary embolism protocol. MIP reconstructed images were created and reviewed. COMPARISON: No relevant prior studies available. FINDINGS: Pulmonary arteries: No pulmonary embolism. Aorta: No acute findings. Lungs: Mild bilateral upper and lower lobe bronchial wall thickening, compatible with reactive airway disease or bronchitis. Pleural space: Normal. No significant effusion. No pneumothorax. Heart: Extensive 3 vessel coronary artery atherosclerotic disease. Bones/joints: No acute fracture. No dislocation. Soft tissues: Normal. Lymph nodes: Normal. Stomach and bowel: Surgical changes of prior gastric sleeve procedure are partially visualized. IMPRESSION: 1. No pulmonary embolism. 2. Mild bilateral upper and lower lobe bronchial wall thickening, compatible with reactive airway dis ease or bronchitis. 3. Incidental/non-acute findings are described above. Thank you for allowing us to participate in the care of your patient. Dictated and Authenticated by: Vik Frederick MD 11/26/2017 4:19 AM Central Time ([place] & [place]) FINAL REPORT EMERGENT AFTER HOURS CT ANGIOGRAM OF CHEST PERFORMED WITH INTRAVENOUS CONTRAST ENHANCEMENT AND 3D REC ONSTRUCTIONS: HISTORY: Crushing burning left-sided chest pain. Elevated D-dimer. FINDINGS: The lungs are clear of any confluent infiltrative process. No pulmonary nodules or pleural effusions are identified. No significant mediastinal or hilar adenopathy. Thoracic aorta is normal in caliber. There is fair pulmonary artery opacification, there is no CT ev idence for pulmonary embolus. Visualized liver parenchyma shows no focal findings. IMPRESSION: 1. No CT evidence of a pulmonary embolus. 2. This report is in agreement with the temporary report issued by [facility]. POS: [facility]
[2017-11-26] MEDS: Aspirin 325 mg Enteric Coated Tablet PO SCH (10:39)
[2017-11-26] MEDS: Pregabalin 50 MG CAP PO SCH ×2 (11:02→21:06)
[2017-11-26] MEDS: Famotidine 20 MG TAB PO SCH ×2 (11:02→21:06)
[2017-11-26] MEDS: DULoxetine 60 MG CAP PO SCH ×2 (11:02→21:06)
[2017-11-26] MEDS: Carvedilol 3.125 MG TAB PO SCH ×2 (11:03→21:06)
[2017-11-26 11:05] LABS: Troponin I Less than 0.010 ng/mL (< 0.028)
[2017-11-26] MEDS ORDERED: Atorvastatin Calcium 40 MG TAB PO SCH ×2 (11:15→21:00)
--- NOTE | 2017-11-26 13:01 | HP ---
DATE OF ADMISSION: 11/26/2017 PRIMARY CARE PHYSICIAN: Christoph Hernandez M.D. at [facility]. CHIEF COMPLAINT: Chest pain radiating up to her jaw. HISTORY OF PRESENT ILLNESS: Ms. Caceres is a pleasant 57-year-old female with known history of severe coronary artery disease, diabetes mellitus type 2, hypertension, obesity, and sleep apnea, who prese nted to the emergency room with above-mentioned complaint. History is mainly obtained by the patient herself and electronic medical records have been reviewed. The patient has had cardiac catheterizat ion done in 10/[address] Blandon, which showed 3-vessel coronary artery disease and mildly impaire d ventricular function. She had 50% stenosis on the first obtuse marginal branch as well as 15% sten osis proximal RCA and right PDA. She has history of stenting to mid LAD in 2016. The patient reports that she has been feeling fine, but she had one episode of similar symptoms about 1 month ago. Yesterday also, she had these symptoms where she started to have significant chest dis comfort starting from the center of the chest going up to her jaw. She felt as if her whole face and neck and ears were burning and it resolved spontaneously. Then, it restarted last night, waking her up from sleep, so she came to the emergency room. She rates it as a 10/10 in intensity. She states that it somewhat feels like the heart attack pain she had few years ago. She reported that she is s upposed to be on aspirin, but does not take it because she usually forgets. She is also not on curre ntly on any beta blockers or MAHESH inhibitors. She denies any recent illnesses. No nausea or vomiting. She denies any shortness of breath, orthopn ea, or PND. She denies any excessive swelling in her legs. She denies any fever, chills, cough. Upon presentation to the emergency room, her blood pressure was elevated to 177/100 and otherwise she was hemodynamically stable. Her 12-lead EKG showed first degree AV block, otherwise normal sinus rh ythm, QTC of [address] elevation or depression. Chest x-ray was unremarkable. Her D- dimer was mildly elevated, so she underwent a CT angiogram which was also negative for any pulmonary embolism. She received transdermal nitroglycerin as well as oral aspirin and is now being admitted t o telemetry floor to rule out acute coronary syndrome. Her cardiac enzymes have been trended and are negative x4. The patient reports that she has also a referral for a polymer materials consultant because she has been having some lower abdominal pain as referred by her primary care physician. PAST MEDICAL HISTORY: 1. Diabetes mellitus type 2. 2. Anxiety. 3. Depression. 4. Arthritis. 5. Fibromyalgia. 6. Neuropathy. 7. Morbid obesity. 8. Hyperlipidemia. 9. Sleep apnea. PAST SURGICAL HISTORY: 1. Hysterectomy in 2005. 2. Cholecystectomy. 3. Laparoscopic umbilical hernia repair. 4. Laparoscopic appendectomy in 2013. 5. Gastric sleeve operation in 01/2016. 6. Left TKR 10/2016. FAMILY HISTORY: Significant family history of cardiac disease per the patient. SOCIAL HISTORY: She is and lives with her . She has no history of drug, tobacco or a lcohol abuse. ALLERGIES: No known medication allergies. CURRENT HOME MEDICATIONS: As follows: Lyrica 50 mg p.o. b.i.d., Cymbalta 60 mg p.o. b.i.d., atorvas tatin 80 mg p.o. daily and Alprazolam 0.25 mg p.o. daily. REVIEW OF SYSTEMS: A 12-point review of systems was done, it is negative except for those mentioned in the history and physical. LABORATORY DATA: CBC is unremarkable. D-dimer 0.80. Serum chemistries unremarkable. Her BUN was s lightly elevated yesterday 23. Cardiac enzyme, less than 0.010 for troponin x4. BNP is normal. Magalie st x-ray by my review has no evidence of acute pulmonary edema or effusion. She does have cardiomega ly. CT angio is negative for any pulmonary embolism. She does have a bronchial wall thickening comp atible with reactive airway disease or bronchitis. A 12-lead EKG by my review shows normal sinus rhy thm without any acute ST or T-wave changes. PHYSICAL EXAMINATION: VITAL SIGNS: This morning, temperature 98.1, pulse of 60, respirations 20, saturating 98% on room ai r, blood pressure 110/59. GENERAL: She does appear uncomfortable, but in no acute distress. She is awake, alert, oriented x3. HEENT: Mucous membrane is moist and pink. No oropharyngeal exudate or erythema. Head is normocepha lic, atraumatic. Pupils equal, reactive to light and accommodation. Extraocular movement intact. NECK: Supple without any lymphadenopathy, JVD or bruit. CHEST: Clear to auscultation without any wheezing, rales or rhonchi. Nontender to palpation. CARDIOVASCULAR: Rate and rhythm is regular without any murmur, rubs or gallops. ABDOMEN: Obese, soft, nontender, nondistended with positive bowel sounds. She has mild tenderness t o palpation in the epigastric region. EXTREMITIES: Free of any cyanosis, clubbing, or edema. NEUROLOGIC: Nonfocal. SKIN: Free of any rashes or bruises. I feel warm and dry to touch. IMPRESSION: 1. Chest pain, multiple etiologies are likely. She does have moderate coronary artery disease and c ardiac catheterization last year, but does not seem to be having acute coronary syndrome at this time with normal EKG and normal cardiac enzymes. Stable angina cannot be ruled out. The patient will be restarted on aspirin and we will add beta blockers as well as MAHESH inhibitors as much as a blood pres sure would be able to handle. She already takes high dose statin in the form of atorvastatin 80 mg d aily. We will check a lipid panel as well. She does have some epigastric tenderness and gastritis type pain, cannot be ruled out with radiation upwards to the chest. We will give her a trial of proton pump inhibitor for now. Given her history of coronary artery disease, we will perform a transthoracic echocardiogram. Cardio frantz has been consulted from the emergency room and we will follow the recommendations. She is curre ntly hemodynamically stable. 2. Diabetes mellitus type 2. It has been mentioned that the patient has diabetes in her medical leena rt, but currently she is not on any medications. We will check her hemoglobin A1c. Her blood sugar was 124 this morning. Diet and lifestyle modification is advised and the patient is educated about i t. 3. Hypertension, currently better controlled. We will start beta blockers this morning and if she t olerates it, we will start MAHESH inhibitors as well. 4. Morbid obesity with a BMI of 41.5. 5. Moderate coronary artery disease as above which she will be started on aspirin, beta hannah, and MAHESH inhibitor based on her blood pressure readings. 6. , continue atorvastatin and check lipid panel. 7. Add deep venous thrombosis and gastrointestinal prophylaxis. DISPOSITION: Ms. Caceres is currently being admitted to the hospital for complaints of chest pain wit h known history of moderate coronary artery disease. Estimated length of stay at this time is less t paz 2-3 midnight, but further management will depend upon the Cardiology recommendations and the resu lts of her echocardiogram.
[2017-11-26 13:23] LABS: Cardiac Risk 3.5 (Less than 4.5)
[2017-11-26] MEDS ORDERED: ISOVUE-370 76%-LOCM 1 ML ONE (14:47)
[2017-11-26] MEDS ORDERED: Enoxaparin Sodium 100 MG/ML SYRINGE SC SCH (18:00)
[2017-11-26] MEDS ORDERED: Communication Order-Pharmacy FS SCH (18:15)
[2017-11-26] MEDS: Sodium Chloride 0.9% 1,000 ML IV SCH (18:52)
--- NOTE | 2017-11-26 23:12 | CON ---
DATE OF CONSULTATION: 11/26/2017 HISTORY OF PRESENT ILLNESS: Kaykay Caceres is a 57-year-old white female, who initially evaluated in 05/2015. Prior to that when she was living in [place], she has myocardial infarction and stent p lacement in 10/2014. This was a drug-eluting stent and she denied any chest pain after that. She wo uld get dyspneic on exertion after walking 10 minutes. In 10/2015, she underwent Lexiscan Cardiolite testing for preoperative evaluation. This revealed a severe fixed defect in the proximal to distal anterior wall, apex and proximal to distal lateral wall. There was mild proximal to distal inferior ischemia. was not interpretable. With this finding, it was recommended she undergo cardiac ca theterization. The left groin was used since previously in [place]. There was failed Perclose of the right femoral artery during the [place] catheterization in 2014. At catheterization, she had distal anterior and apical dyskinesis. There is mild inferior hypokinesis. Ejection fraction was 5 0%-55%. There was 20% proximal LAD, 70%-80% distal LAD. The Resolute stent in the proximal to mid c ircumflex continued to be patent with a 30% stenosis. There is also a 30% stenosis at the takeoff of the first obtuse marginal which had been PTCA. The right coronary artery had a 50% mid stenosis and a 50% stenosis in the right posterior descending. She underwent placement of a REBEL 2.5 x 12 postdilated with 3.0 mm balloon. Bare metal stent was pl aced due to bariatric surgery in the near future. She then underwent bariatric surgery with Dr. Aguilar in 01/2016 with laparoscopic sleeve gastrectomy. In 09/2016, she underwent Lexiscan cardiac PET scan for evaluation prior to undergoing bilateral knee replacement. This revealed distal lateral and apical fixed defect with surrounding ischemia. With that finding, she underwent repeat catheterization in 10/2016. This revealed 3-vessel coronary arter y disease and mild left ventricular dysfunction. The LAD stent had 30% restenosis. There is a stent in the proximal to mid circumflex with a 50% lesion. Right coronary artery revealed a 50% proximal RCA stenosis and a 50% right posterior descending stenosis. There was moderate distal anterior and p roximal inferior hypokinesis with apical dyskinesis. It was felt that her anatomy was stable and she could proceed with bilateral knee replacements were performed in 10/2016 and 01/2017. She was last seen in the office on 09/10/2017. She complained of some leg cramping. She denied any chest discomfort or shortness of breath. Yesterday morning, she awoke with central chest pressure radiating to both jaws. She is uncertain ho w long this lasted and went back to sleep. She did not have any exertional chest discomfort yesterda y. Then, this morning she woke with the same type pain which did not resolve, although she cannot te ll me how long it lasted. She has had multiple episodes of this and so decided to come to the emerge ncy room for further evaluation. PAST MEDICAL HISTORY: 1. Paroxysmal atrial fibrillation (she has seen Dr. Mullen and declined radiofrequency ablation), coronary artery disease, non ST elevation myocardial infarction in 10/2014 in [place]. 2. Morbid obesity. 3. Hypertension. 4. Hypercholesterolemia. 5. Chronic gastroesophageal reflux disease. 6. Obstructive sleep apnea. 7. Diabetes. 8. Former smoker. 9. Venous insufficiency. MEDICATIONS: Atorvastatin 80 daily, Xanax 0.25 daily p.r.n., Lyrica 50 b.i.d., Cymbalta 60 b.i.d. W hen she was seen in August, she was told to take an aspirin a day, but apparently has not been doing th at. ALLERGIES: None. HOSPITAL VISIT DIAGNOSIS: Obstructive sleep apnea. OPERATIONS: Hysterectomy, cholecystectomy, laparoscopic umbilical hernia repair, laparoscopic append ectomy, gastric sleeve surgery in 01/2016, bilateral total knee replacement. SOCIAL HISTORY: She is a former smoker. She does not drink. FAMILY HISTORY: Positive for coronary artery disease. REVIEW OF SYSTEMS: Twelve-point review of systems otherwise unremarkable. PHYSICAL EXAMINATION: VITAL SIGNS: Blood pressure 129/60, pulse 81. HEENT: PERRL. NECK: Supple. CHEST: Clear. CARDIAC: S1, S2 normal, without any S3, S4. There is a 1/6 systolic murmur along the left sternal b order. Carotid upstrokes normal without bruits. ABDOMEN: Obese. Normal bowel sounds, no tenderness. EXTREMITIES: Revealed no clubbing, cyanosis or edema. NEUROLOGIC: Grossly intact. SKIN: Warm and dry. LABORATORY DATA: EKG revealed normal sinus rhythm with possible left atrial enlargement, left anteri or fascicular block. Cardiac enzymes are totally normal. Hemoglobin 12.4, hematocrit 38.9, white co unt 9500, platelets 384,000. Cholesterol 176, triglycerides 82, HDL 51, LDL 109. IMPRESSION: 1. Possible acute coronary syndrome. 2. History of non ST elevation myocardial infarction followed by stent placement in [place] in . Here in 11/2015, she underwent placement of a bare metal stent in the mid to distal LAD. Rep eat catheterization in 10/2016 revealed no flow limiting disease, although she had multiple areas of stenosis. 3. Hypertension. 4. Hypercholesterolemia with poor control. 5. Former smoker. 6. Positive family history. 7. History of paroxysmal atrial fibrillation. The patient has seen Paz and apparently has dec lined radiofrequency ablation. 8. Morbid obesity. PLAN: The situation was discussed with patient. Recommend she undergo cardiac catheterization. Ris ks of this were discussed including , myocardial infarction, dye reaction, vascular injury, CVA, transfusion, limb loss, renal loss, etc. Also, risk of intervention with PTCA and stent placement w ere discussed including , myocardial infarction, emergent CABG, restenosis, stent thrombosis, ve ssel perforation, etc. She does not have any other upcoming surgeries and has never had any history of stroke or gastrointestinal bleeding. Overall, recommended a drug-eluting stent will be placed if needed.
[2017-11-27] MEDS: Atorvastatin Calcium 40 MG TAB PO SCH (05:11)
[2017-11-27] MEDS: Pregabalin 50 MG CAP PO SCH ×2 (05:12→21:25)
[2017-11-27] MEDS: DULoxetine 60 MG CAP PO SCH ×2 (05:12→21:25)
[2017-11-27] MEDS: Carvedilol 3.125 MG TAB PO SCH ×2 (05:12→21:26)
[2017-11-27] MEDS: Aspirin 325 mg Enteric Coated Tablet PO SCH (05:12)
[2017-11-27] MEDS: Famotidine 20 MG TAB PO SCH ×2 (05:12→21:25)
[2017-11-27] MEDS: Ezetimibe 10 MG TAB PO SCH (05:12)
[2017-11-27] MEDS: Sodium Chloride 0.9% 1,000 ML IV SCH ×2 (05:15→18:14)
[2017-11-27 06:17] LABS: #Basophils 0.1 thou/uL (0.0-0.2); #Eosinphils 0.2 thou/uL (0.0-0.7); #Lymphocytes 3.2 thou/uL (1.20-3.40); #Monocytes 0.6 thou/uL (0.11-0.59); #Neutrophils 2.7 thou/uL (1.40-6.50); %Basophils 1.5 % (0.0-1.0); %Eosinophils 2.6 % (0.0-10.0); %Monocytes 8.4 % (0.0-10.0); %Neutrophils 40.5 % (42.0-75.0); Hemoglobin 11.7 g/dL (12.0-16.0); Mean Corpuscular HGB CONC 31.2 g/dL (32.0-36.0); Mean Corpuscular Hemoglobin 25.9 pg (27.0-31.0); Mean Corpuscular Volume 83.2 fL (78.0-98.0); Mean Platelet Volume 6.9 fL (7.4-10.4); Platelet Count 351 thou/uL (130-400); RBC Distribution Width 13.3 % (11.5-14.5); Red Blood Cell (RBC) Count 4.52 mill/uL (4.20-5.40); White Blood Cell (WBC) Count 6.7 thou/uL (4.8-10.8)
[2017-11-27 06:43] LABS: Anion Gap 9 mmol/L (10-20); BUN (Urea Nitrogen) 19 mg/dL (9.8-20.1); Calc. Creatinine Clearance 160 mL/min (70-130); Calcium 9.2 mg/dL (7.8-10.44); Carbon Dioxide 26 mmol/L (22-29); Chloride 109 mmol/L (98-107); Estimated GFR-MDRD Greater than 90; Glucose 114 mg/dL (70-105); Sodium 140 mmol/L (136-145)
[2017-11-27] MEDS ORDERED: Iopamidol 370 76% 100 ML VIAL ONE (10:22)
[2017-11-27] MEDS ORDERED: Iopamidol 370 76% 50 ML VIAL FS ONE (10:22)
[2017-11-27] MEDS: Lisinopril 5 MG TAB PO SCH ×2 (11:05→21:26)
[2017-11-27] MEDS ORDERED: Nitroglycerin 100MG/250ML BOT 0 ML ONE (13:03)
[2017-11-27] MEDS ORDERED: Protamine Sulfate 50 MG/5 ML VIAL ONE (13:03)
[2017-11-27] MEDS ORDERED: Heparin 10,000 UNITS/1 ML VIAL ONE (13:03)
[2017-11-27] MEDS ORDERED: Lidocaine 1% PF 5 ML VIAL ONE (13:03)
[2017-11-27] MEDS ORDERED: Lidocaine 1% (PF) 30 ML VIAL ONE (13:04)
--- NOTE | 2017-11-27 14:00 | PDOC.PN ---
- Subjective Encounter Start Date: 11/27/17 Encounter Start Time: 13:58 Subjective: few more episodes of chest pain,now comfortable - Objective MAR Reviewed: Yes Vital Signs & Weight: Vital Signs (12 hours) Temp Pulse Resp BP Pulse Ox 11/27/17 11:54 97.8 F 75 20 114/78 96 11/27/17 07:30 97.7 F 68 24 H 134/64 97 11/27/17 05:10 97.7 F 73 20 153/73 H 98 Weight Weight 228 lb 6.4 oz I&O: 11/26/17 11/27/17 11/28/17 06:59 06:59 06:59 Intake Total 1200 Output Total 1600 Balance -400 Result Diagrams: 11/27/17 05:54 11/27/17 05:53 Additional Labs: Laboratory Tests 11/26/17 11/26/17 11/26/17 01:11 03:37 06:44 Hemoglobin A1c Troponin I Less than 0.010 Less than 0.010 0.013 Triglycerides Cholesterol LDL Cholesterol, Calc HDL Cholesterol 11/26/17 11/26/17 11/26/17 06:44 06:44 10:38 Hemoglobin A1c 6.0 Troponin I Less than 0.010 Triglycerides 82 Cholesterol 176 LDL Cholesterol, Calc 109 HDL Cholesterol 51 Phys Exam - Physical Examination Constitutional: NAD HEENT: PERRLA, moist MMs, sclera anicteric, oral pharynx no lesions Neck: no nodes, no JVD, supple, full ROM Respiratory: no wheezing, no rales, no rhonchi, clear to auscultation bilateral Cardiovascular: RRR, no significant murmur, no rub Gastrointestinal: soft, non-tender, no distention, positive bowel sounds Musculoskeletal: no edema, pulses present Neurological: non-focal, normal sensation, moves all 4 limbs Psychiatric: normal affect, A&O x 3 Skin: no rash Dx/Plan (1) Chest pain Code(s): R07.9 - CHEST PAIN, UNSPECIFIED Status: Acute Comment: suspect Stable angina (2) CAD (coronary artery disease) Code(s): I25.10 - ATHSCL HEART DISEASE OF [place] CORONARY ARTERY W/O ANG PCTRS Status: Chronic Qualifiers: Comment: prior stent x2 in 2014, 2016 (3) Dyslipidemia Code(s): E78.5 - HYPERLIPIDEMIA, UNSPECIFIED Status: Chronic (4) HTN (hypertension) Code(s): I10 - ESSENTIAL (PRIMARY) HYPERTENSION Status: Chronic Qualifiers: (5) Osteoarthritis Code(s): M19.90 - UNSPECIFIED OSTEOARTHRITIS, UNSPECIFIED SITE Status: Chronic (6) Morbid obesity with BMI of 40.0-44.9, adult Code(s): E66.01 - MORBID (SEVERE) OBESITY DUE TO EXCESS CALORIES; Z68.41 - BODY MASS INDEX (BMI) 40.0-44.9, ADULT Status: Chronic - Plan plan discussed w/ family, DVT proph w/SCDs cardiac Cath today -: cont ASA,statin,BB, add MAHESH-I as BP tolerates -: Hemodynamically stable. -: will follow. * . Review of Systems - Review of Systems Constitutional: negative: fever, chills, sweats, weakness, malaise, other ENT: negative: Ear Pain, Ear Discharge, Nose Pain, Nose Discharge, Nose Congestion, Mouth Pain, Mouth Swelling, Throat Pain, Throat Swelling, Other Respiratory: negative: Cough, Dry, Shortness of Breath, Hemoptysis, SOB with Excertion, Pleuritic Pain, Sputum, Wheezing Cardiovascular: chest pain. negative: palpitations, orthopnea, paroxysmal nocturnal dyspnea, edema, light headedness, other Gastrointestinal: negative: Nausea, Vomiting, Abdominal Pain, Diarrhea, Constipation, Melena, Hematochezia, Other Genitourinary: negative: Dysuria, Frequency, Incontinence, Hematuria, Retention , Other Musculoskeletal: negative: Neck Pain, Shoulder Pain, Arm Pain, Back Pain, Hand Pain, Leg Pain, Foot Pain, Other Neurological: negative: Weakness, Numbness, Incoordination, Change in Speech, Confusion, Seizures, Other - Medications/Allergies Allergies/Adverse Reactions: Allergies Allergy/AdvReac Type Severity Reaction Status Date / Time No Known Drug Allergies Allergy Verified 11/26/17 07:40 Medications: Current Medications Acetaminophen (Tylenol) 650 mg PO Q4H PRN PRN Reason: Headache/Fever or Pain Al Hydroxide/Mg Hydroxide (Maalox) 30 ml PO Q6H PRN PRN Reason: Heartburn or Indigestion Alprazolam (Xanax) 0.25 mg PO DAILY PRN PRN Reason: Anxiety Aspirin (Ecotrin) 325 mg PO DAILY [facility] Last Admin: 11/27/17 05:12 Dose: 325 mg Atorvastatin Calcium (Lipitor) 80 mg PO DAILY [facility] Last Admin: 11/27/17 05:11 Dose: 80 mg Benzonatate (Tessalon) 100 mg PO Q4H PRN PRN Reason: Cough Bisacodyl (Dulcolax) 10 mg PO DAILYPRN PRN PRN Reason: Constipation Calcium Carbonate (Tums) 1,000 mg PO Q4H PRN PRN Reason: Heartburn or Indigestion Carvedilol (Coreg) 3.125 mg PO BID [facility] Last Admin: 11/27/17 05:12 Dose: 3.125 mg Clonidine (Catapres) 0.1 mg PO Q4H PRN PRN Reason: Systolic BP > 160 Duloxetine HCl (Cymbalta) 60 mg PO BID [facility] Last Admin: 11/27/17 05:12 Dose: 60 mg Ezetimibe (Zetia) 10 mg PO DAILY [facility] Last Admin: 11/27/17 05:12 Dose: 10 mg Famotidine (Pepcid) 20 mg PO BID [facility] Last Admin: 11/27/17 05:12 Dose: 20 mg Guaifenesin (Robitussin Sf) 200 mg PO Q4H PRN PRN Reason: Cough Hydralazine HCl (Apresoline) 10 mg SLOW IVP Q4H PRN PRN Reason: Systolic BP > 170 Sodium Chloride (Normal Saline 0.9%) 1,000 mls @ 100 mls/hr IV .Q10H [facility] Last Admin: 11/27/17 05:15 Dose: 1,000 mls Lisinopril (Zestril) 5 mg PO BID [facility] Last Admin: 11/27/17 11:05 Dose: Not Given Loratadine (Claritin) 10 mg PO DAILYPRN PRN PRN Reason: Sinus Symptoms Lorazepam (Ativan) 1 mg PO Q4H PRN PRN Reason: Anxiety/Agitation Nitroglycerin (Nitrostat) 0.4 mg SL Q5MIN PRN PRN Reason: Chest Pain Last Admin: 11/27/17 07:33 Dose: 0.4 mg Ondansetron HCl (Zofran) 4 mg IVP Q6H PRN PRN Reason: Nausea/Vomiting Pantoprazole Sodium (Protonix) 40 mg PO DAILY [facility] Last Admin: 11/27/17 05:12 Dose: 40 mg Pregabalin (Lyrica) 50 mg PO BID [facility] Last Admin: 11/27/17 05:12 Dose: 50 mg Senna (Senokot) 2 tab PO HSPRN PRN PRN Reason: Constipation Sodium Chloride (Flush - Normal Saline) 10 ml IVF Q12HR [facility] Last Admin: 11/27/17 05:13 Dose: 10 ml Sodium Chloride (Flush - Normal Saline) 10 ml IVF PRN PRN PRN Reason: Saline Flush Tramadol HCl (Ultram) 50 mg PO Q4H PRN PRN Reason: Moderate Pain (4-6)
[2017-11-27] MEDS ORDERED: Midazolam HCl 2 mg/2 ml Vial ONE (14:40)
[2017-11-27] MEDS ORDERED: Fentanyl 100 MCG/2 ML VIAL ONE (14:40)
[2017-11-27] MEDS ORDERED: Bivalirudin 250 MG VIAL ONE (15:06)
[2017-11-27] MEDS ORDERED: TICAGRELOR 90 MG TABLET ONE (15:19)
[2017-11-27] MEDS ORDERED: Nitroglycerin 100MG/250ML BOT 250 ML ONE (15:19)
--- NOTE | 2017-11-27 15:27 | EKG ---
Test Reason : Blood Pressure : / mmHG Vent. Rate : 072 BPM Atrial Rate : 072 BPM P-R Int : 206 ms QRS Dur : 096 ms QT Int : 400 ms P-R-T Axes : 064 -84 060 degrees QTc Int : 438 ms Normal sinus rhythm Left anterior fascicular block Abnormal ECG When compared with ECG of 26-NOV-2017 01:02, (Unconfirmed) No significant change was found Confirmed by JOSE L DE LUNA, . SAbebe ([id number]) on 11/27/2017 3:27:10 PM Referred By: ALEENA Confirmed By:DR. Fritz DOMINGO MD
[2017-11-27] MEDS ORDERED: Morphine 2 MG/ML SYRINGE SLOW IVP PRN (15:58)
[2017-11-27] MEDS ORDERED: Sodium Chloride 0.9% 1,000 ML IV SCH (15:59)
[2017-11-27] MEDS ORDERED: Morphine 4 MG/ML VIAL ONE (16:08)
[2017-11-27] MEDS: TICAGRELOR 90 MG TABLET PO SCH (21:24)
[2017-11-28 04:37] LABS: #Eosinphils 0.1 thou/uL (0.0-0.7); #Lymphocytes 1.9 thou/uL (1.20-3.40); #Monocytes 0.6 thou/uL (0.11-0.59); %Basophils 0.6 % (0.0-1.0); %Eosinophils 1.3 % (0.0-10.0); %Lymphocytes 21.9 % (21.0-51.0); %Monocytes 7.3 % (0.0-10.0); %Neutrophils 68.9 % (42.0-75.0); Hemoglobin 11.2 g/dL (12.0-16.0); Mean Corpuscular HGB CONC 31.5 g/dL (32.0-36.0); Mean Corpuscular Hemoglobin 25.8 pg (27.0-31.0); Mean Platelet Volume 6.5 fL (7.4-10.4); Platelet Count 331 thou/uL (130-400); RBC Distribution Width 13.2 % (11.5-14.5); Red Blood Cell (RBC) Count 4.35 mill/uL (4.20-5.40); White Blood Cell (WBC) Count 8.7 thou/uL (4.8-10.8)
[2017-11-28 05:03] LABS: ALT (SGPT) 14 U/L (8-55); AST (SGOT) 13 U/L (5-34); Albumin 3.5 g/dL (3.5-5.0); Alkaline Phosphatase 124 U/L (40-150); Anion Gap 9 mmol/L (10-20); BUN (Urea Nitrogen) 16 mg/dL (9.8-20.1); Bilirubin, Total 0.5 mg/dL (0.2-1.2); Calc. Creatinine Clearance 146 mL/min (70-130); Carbon Dioxide 25 mmol/L (22-29); Chloride 107 mmol/L (98-107); Estimated GFR-MDRD 89; Glucose 118 mg/dL (70-105); Potassium 4.2 mmol/L (3.5-5.1); Protein, Total 6.5 g/dL (6.0-8.3); Sodium 137 mmol/L (136-145)
[2017-11-28 07:32] VITALS: BP 122/71; TEMP 97.9
[2017-11-28] MEDS: Pregabalin 50 MG CAP PO SCH (08:27)
[2017-11-28] MEDS: DULoxetine 60 MG CAP PO SCH (08:27)
[2017-11-28] MEDS: Lisinopril 5 MG TAB PO SCH (08:27)
[2017-11-28] MEDS: Carvedilol 3.125 MG TAB PO SCH (08:27)
[2017-11-28] MEDS: Ezetimibe 10 MG TAB PO SCH (08:27)
[2017-11-28] MEDS: Atorvastatin Calcium 40 MG TAB PO SCH (08:27)
[2017-11-28] MEDS: Famotidine 20 MG TAB PO SCH (08:28)
[2017-11-28] MEDS: TICAGRELOR 90 MG TABLET PO SCH (08:28)
--- NOTE | 2017-11-28 13:31 | DIS ---
DATE OF ADMISSION: 11/26/2017 DATE OF DISCHARGE: 11/28/2017 CONDITION AT THE TIME OF DISCHARGE: Stable and improved. PRIMARY CARE PHYSICIAN: Christoph Hernandez. DISCHARGE DIAGNOSES: 1. Chest pain due to stable angina. 2. Coronary artery disease. 3. Dyslipidemia. 4. Hypertension. 5. Osteoarthritis. 6. Morbid obesity with body mass index of 41.8. DISCHARGE MEDICATIONS: New medications are as follows: Aspirin 81 mg daily, Brilinta 90 mg p.o. b.i .d., lisinopril 5 mg p.o. b.i.d., Zetia 10 mg daily, Coreg 3.125 mg p.o. b.i.d. Resume home medicati ons as below; astorvastatin 80 mg daily, Xanax p.r.n., Cymbalta 60 b.i.d., and Lyrica 50 b.i.d. PROCEDURES DONE IN THE HOSPITAL: 1. CT angio of thorax upon presentation on 11/26/2017 which is negative for any pulmonary embolism o r acute abnormalities. 2. Transthoracic echocardiogram on 11/26/2017 which shows preserved ejection fraction of 55%-60% and structurally normal valves. 3. Cardiac catheterization on 11/27/2017 which showed in-stent stenosis of mid LAD stent. That was successfully PCI'd with drug-eluting stent. She also has 3-vessel coronary artery disease with mildl y impaired ventricular function. INHOUSE CONSULTATION: Cardiology, Dr. Rosales Blandon. HISTORY OF PRESENT ILLNESS: Ms. Caceres is a 57-year-old female with known history of coronary artery disease who is noncompliant with medications, came to the emergency room with complaints of sharp ch est pain going up in her jaw. This was similar to her chest pain when she had her heart attack. The re were no EKG changes. Cardiac enzymes were unremarkable and she was admitted under observation [facility] for further workup and Cardiology was consulted. Please see admission history and physical for f urther details. She was started on aspirin, beta hannah, lisinopril and underwent echocardiogram which was unremarka ble. Cardiology recommended cardiac catheterization given her history, which was done and it was fou nd that her LAD stent has stenosis. Successful PCI was done with drug-eluting stent with confucianism of the flow. She did have multiple other vessels anywhere from 30-50% blocked. She was started on cardiac prudent medications including Brilinta and was given prescriptions of all of them with strict instructions to take her medications as instructed. PHYSICAL EXAMINATION: She was seen and examined prior to discharge if she is cleared by Cardiology f or discharge this morning and is feeling very well. No complaints. PHYSICAL EXAMINATION: VITAL SIGNS: This morning, temperature 97.9, pulse of 81, respirations 18, saturating 94% on room ai r, blood pressure 122/71. GENERAL: No acute distress, awake, alert, oriented. CHEST: Clear to auscultation bilaterally. Rate and rhythm is regular. LABORATORY EXAMINATION: Lipid panel unremarkable. Troponin within normal range x4. Serum chemistri es and CBC unremarkable. She will follow with primary care physician in 1 week and Cardiology in 5-6 weeks. Discharge plan wa s discussed with the patient who verbalized understanding.
--- NOTE | 2017-11-28 15:17 | EKG ---
Test Reason : Blood Pressure : / mmHG Vent. Rate : 074 BPM Atrial Rate : 074 BPM P-R Int : 212 ms QRS Dur : 088 ms QT Int : 388 ms P-R-T Axes : 059 -54 088 degrees QTc Int : 430 ms Sinus rhythm with 1st degree A-V block Possible Left atrial enlargement Left anterior fascicular block Abnormal ECG Confirmed by ARTEMIO JAVIER DO ([id number]), editor publications DENITA MENJIVAR ([id number]) on 11/28/2017 3:17:07 PM Referred By: Confirmed By:ARTEMIO JAVIER DO
--- NOTE | 2017-11-28 15:39 | CCL ---
PROCEDURE: 1. Left heart catheterization. 2. Selective coronary arteriography. 3. Left ventriculography. 4. Fractional flow reserve of the LAD, intracoronary nitroglycerin. 5, Drug-eluting stent placement in the mid LAD. INDICATION: Prolonged chest pain with known coronary artery disease. Patient was brought to cardiac orthodontic lab technician and right groin was prepped and draped in usual fashion. 1% lidocaine was infiltrated. The patient was given Versed 1 mg and fentanyl 25 mg. A 6-Citizen [place] angled pigtail was inserted and pressures were obtained. Left ventriculogram was performed using 30 mL of contrast at 12 mL per second in an ANDRADE 30 degree projection. Pressure obtained and the pigtail was removed. A 6-Citizen [place] Viki left 4 followed by 6-Citizen [place] Viki right 4 was used coronary arteriogra phy. Angiomax bolus and drip were given. A 6-Citizen [place] left 4 guide catheter was inserted and a flow wire wa s placed distal to the mid LAD stent. Fractional flow reserve was 0.68. Synergy 3.0 x 16 mm stent w as then positioned and deployed. The mid portion stent was postdilated with Emerge NC 3.25 x 8 mm leonor leon. Final result was excellent. The patient was then transferred to PCU after the sheath was sutu red in place. RESULTS: PRESSURES: Aorta 144/77, mean 16. Left ventricle 144/16. LEFT VENTRICULOGRAM: There was moderate distal anterior and proximal inferior hyperkinesis. There was apical dyskinesis w ith ejection fraction of 45-50%. CORONARY ARTERIOGRAPHY. 1. Left main was normal. 2. The LAD had a 60% mid LAD in-stent restenosis. 3. The circumflex had normal proximal stent (10/2014 in [place]) - Resolute 3.0 x 22 mm There wa s a 40% first obtuse marginal lesion which was PTCA in 10/2014. 4. Right coronary artery had a 50% proximal stenosis and a 30% right posterior descending stenosis, 20% right posterolateral stenosis. INTERVENTION RESULTS: The fractional flow reserve was 0.68. The in-stent restenosis was reduced from 60% to 0%. IMPRESSION: 1. Three-vessel coronary artery disease. 2. Mild left ventricular dysfunction. 3. Successful drug-eluting stent placement in the mid LAD in-stent restenosis.
--- NOTE | 2017-11-30 13:34 | EKG ---
Test Reason : Blood Pressure : / mmHG Vent. Rate : 069 BPM Atrial Rate : 069 BPM P-R Int : 220 ms QRS Dur : 098 ms QT Int : 404 ms P-R-T Axes : 068 -88 069 degrees QTc Int : 432 ms Sinus rhythm with 1st degree A-V block Possible Left atrial enlargement Incomplete right bundle branch block Left anterior fascicular block Abnormal ECG When compared with ECG of 27-NOV-2017 07:46, Incomplete right bundle branch block is now Present Confirmed by JOSE L DE LUNA, DR. Hu ([id number]) on 11/30/2017 1:34:09 PM Referred By: ALEENA Confirmed By:DR. Fritz DOMINGO MD
--- NOTE | 2017-11-30 13:35 | EKG ---
Test Reason : Blood Pressure : / mmHG Vent. Rate : 075 BPM Atrial Rate : 075 BPM P-R Int : 210 ms QRS Dur : 096 ms QT Int : 388 ms P-R-T Axes : 067 -74 085 degrees QTc Int : 433 ms Sinus rhythm with 1st degree A-V block Possible Left atrial enlargement Incomplete right bundle branch block Left anterior fascicular block Abnormal ECG When compared with ECG of 27-NOV-2017 16:27, (Unconfirmed) No significant change was found Confirmed by JOSE L DE LUNA, SAbebe ([id number]) on 11/30/2017 1:34:56 PM Referred By: ALEENA Confirmed By:DR. Fritz DOMINGO MD
== END 2017-11-28 11:00 | disposition home or self-care (01) ==
LOC: ERS 00:57 → 2SW 07:16
PROVIDERS: ADMIT Hospitalist; ATTEND Hospitalist
PROC: 027034Z Dilation of Coronary Artery, One Artery with Drug-eluting Intraluminal Device, Percutaneous Approach (ICD-10-PCS; principal; 2017-11-27)
PROC: 4A023N7 Measurement of Cardiac Sampling and Pressure, Left Heart, Percutaneous Approach (ICD-10-PCS; 2017-11-27)
PROC: B2111ZZ Fluoroscopy of Multiple Coronary Arteries using Low Osmolar Contrast (ICD-10-PCS; 2017-11-27)
DX: I25.118 Atherosclerotic heart disease of native coronary artery with other forms of angina pectoris (principal); I10 Essential (primary) hypertension; I25.2 Old myocardial infarction; F41.9 Anxiety disorder, unspecified; M19.90 Unspecified osteoarthritis, unspecified site; E11.40 Type 2 diabetes mellitus with diabetic neuropathy, unspecified; M79.7 Fibromyalgia; E78.5 Hyperlipidemia, unspecified; E78.00 Pure hypercholesterolemia, unspecified; I48.0 Paroxysmal atrial fibrillation; K21.9 Gastro-esophageal reflux disease without esophagitis; G47.33 Obstructive sleep apnea (adult) (pediatric); F32.9 Major depressive disorder, single episode, unspecified; E66.01 Morbid (severe) obesity due to excess calories; Z68.41 Body mass index [BMI] 40.0-44.9, adult; Z91.14 Patient's other noncompliance with medication regimen; Z87.891 Personal history of nicotine dependence; Z79.899 Other long term (current) drug therapy; Z95.5 Presence of coronary angioplasty implant and graft; Z96.653 Presence of artificial knee joint, bilateral; Z98.84 Bariatric surgery status
CPT/HCPCS: 36415; 71045; 71275; 80048; 80053; 80061; 82550; 82553; 83036; 83880; 84484; 85025; 85347; 85379; 85610; 85730; 92928; 93005; 93010; 93306; 93458; 93571; 94760; 96361; 96372; 96374; 99152; 99153; A4216; C1769; C1874; C1887; C9600; G0378; J0153; J0583; J1644; J1650; J2001; J2250; J2270; J2720; J3010